=== PATIENT | female | born 1980 | race Caucasian/White ===

== ENCOUNTER 2016-12-11 09:19 | Inpatient (IN) ==
--- OUTSIDE RECORDS SUMMARY | 2016-12-11 17:11 | External Medical Summary | Continuity of Care Document ---
:1980 Author Organization [facility] Address [address] [place], [place] [id number] Phone Care Team Providers Name Role Phone Emigdio DO Lynne Unavailable Unavailable Allergies, Adverse Reactions, Alerts Substance Reaction Severity Status ampicillin Nausea/Vomiting Unknown Active Medications Medication Instructions Dosage Effective Dates Status Comments (start - stop) Prozac 40 mg capsule take 1 capsule by oral 40 MG - Active route every day in the morning Tylenol Sinus - Active Congestion Pain 5 mg-325 mg tablet ProAir HFA 90 inhale 2 puff by 180 MCG - Active mcg/actuation inhalation route aerosol inhaler every 4 - 6 hours as needed Problems Condition Effective Dates (start - stop) Clinical Status Supervision of elderly primigravida, - third trimester 36 weeks gestation of - Supervision of elderly primigravida, - first trimester Pap Smear Screening, Cervix - 9 weeks gestation of - Supervision of elderly primigravida, - first trimester Encounter for screening of - mother 13 weeks gestation of - Supervision of elderly primigravida, - second trimester Low lying placenta NOS or w/out - hemorrhage, second trimester 18 weeks gestation of - Supervision of elderly primigravida, - second trimester 22 weeks gestation of - Supervision of elderly primigravida, - second trimester Encounter for screening of - mother 18 weeks gestation of - Supervision of elderly primigravida, - second trimester 26 weeks gestation of - Supervision of elderly primigravida, - third trimester Low lying placenta NOS or w/out - hemorrhage, third trimester 30 weeks gestation of - Supervision of elderly primigravida, - third trimester 34 weeks gestation of - Supervision of elderly primigravida, - third trimester 38 weeks gestation of - Supervision of elderly primigravida, - third trimester 32 weeks gestation of - Supervision of elderly primigravida, - third trimester 37 weeks gestation of - Low lying placenta NOS or w/out - hemorrhage, third trimester 32 weeks gestation of - Asthma Active Depression Active Procedures Procedure Date OB Visit No Charge Cult, pathgnc orgnsm, screen Results Test Name Date and Time Measure Units Reference Range Abnormal Flag Comments Panel Description: CULTURE, GROUP B STREP WITH SUSCEPTIBILITY CULTURE, GROUP B STREP 14:25:00 SEE NOTE CULTURE, GROUP B STREP WITH SUSCEPTIBILITY WITH SUSCEPTIBILITY MICRO NUMBER: [id number] TEST STATUS: FINAL SPECIMEN SOURCE: VAGINAL/ANORECTAL SPECIMEN QUALITY: ADEQUATE RESULT: No group B Streptococcus isolatedTest performed at [facility] [employer] [id number] [place] [address]Klvrxfil: CASEY FERRIS DO,MPH Advance Directives Directive Yes / No Effective Date File Name Unknown Encounters Encounter Practice Location Reason(s) Diagnoses Date Provider Care Team Description For Visit Members Rowena [place] Supervision of Aug-0 [facility] In Womens elderly [address] Kamila ALBERT primigravida, 7 700 PO Box third [email or web address] Medical 1522, weeks gestation [facility] [place], [place], [id number], 120, [place], tel:-[phone] [place], [phone] [address], [place]. tel:[phone] Rowena [place] Supervision of Aug-0 [facility] In Womens elderly 1-201 [address] [facility] [place], primigravida, 7 700 PO Box third [email or web address] Medical 1522, weeks gestation [facility] of [place], [place], [address] [id number], 120, [place], tel:+[phone] [place], 114, [place]. tel: [phone] Rowena [place] Supervision of Casper-2 [facility] In Womens elderly 5-201 Chito. Health [place], primigravida, 7 700 PO Box third [email or web address] Medical 1522, weeks gestation Center [facility] [place], [place], [address] [id number], 120, [place], tel:+[phone] [place], 114, [place]. tel: [phone] Rowena [place] Supervision of Casper-1 [facility] In Womens elderly 1-201 Chito. Health [place], primigravida, 7 700 PO Box third [email or web address] Medical 1522, weeks gestation Center [facility] [place], [place], [address] , 120, [place], tel:+3162 [place], 114, [place]. tel: [phone] Rowena [place] Supervision of Efe-2 C[place]jo Referring In Womens elderly 6-201 Zainab. Provider: Health [place], primigravida, 7 700 Zainab PO Box third [email or web address] Medical Camejo T, 1522, weeks gestation Center [address] [place] [address], of Jakob Yoon, 120, [place] , Jakob [place] 120, [place] Evan IBARRA, tel:[phone] [place], , [place]. [id number]. tel: tel: [phone] Rowena [place] Low lying Efe-2 C[facility]jo In Womens Ultrasound placenta NOS or 6-201 Zainab. Health PA, w/out hemorrhage, 7 700 PO Box third [email or web address] Medical 1522, weeks gestation [facility], of Jakob Yoon, 120, [id number], [place], [place] IBARRA, tel:[phone] , [place]. tel: [phone] Rowena [place] Supervision of Efe-1 C[facility]jo In Womens elderly 2-201 Zianab. Health PA, primigravida, 7 700 PO Box third Medical 1522, trimesterLow [facility], lying placenta Jakob Yoon, NOS or w/out 120, [id number], hemorrhage, third [place], [place] [email or web address] weeks [place], tel: gestation of [phone] , [place]. tel: [phone] Rowena [place] Supervision of August-1 C[facility]jo In Womens elderly 5-201 Zainab. Health PA, primigravida, 7 700 PO Box second Medical 1522, [email or web address] weeks [facility], gestation of Jakob Yoon, 120, , [place], [place], tel:+ [phone] , [place]. tel: [phone] Rowena [place] Supervision of Apr-1 C[facility]jo In Womens elderly 7-201 Zainab. Health PA, primigravida, 7 700 PO Box second Medical 1522, [email or web address] weeks [facility], gestation of Jakob Yoon, 120, , [place], [place], tel: [phone] , [place]. tel: [phone] Rowena [place] Supervision of Mar-2 C[facility]jo In Womens elderly 0-201 Zainab. Health PA, primigravida, 7 700 PO Box second Medical 1522, trimesterLow [facility], lying placenta Jakob Yoon, NOS or w/out 120, , hemorrhage, [place], [place] second [place], tel:+ [id number] weeks [phone] 196790 gestation of , [place]. tel: [phone] Rowena [place] Supervision of Mar-2 C[facility]jo In Womens Ultrasound elderly 0-201 Zainab. Health PA, primigravida, 7 700 PO Box second Medical 1522, [facility] [place], r for Jakob Yoon, screening of 120, [id number], [email or web address] weeks [place], [place] gestation of [place], tel:+ [phone] [address] , [place]. tel: [phone] Rowena [place] Supervision of Feb-1 Camejo In Womens elderly 4-201 Zainab. Health PA, primigravida, 7 700 PO Box first Medical 1522, [facility] for Jakob Yoon, screening of 120, [id number], [email or web address] weeks [place], [place] gestation of ST[place], tel: [phone] [address] , [place]. tel: [phone] Associates [place] Supervision of Nell Referring In Womens elderly 7-201 Zaniab. Provider: Health PA, primigravida, 7 700 Zainab PO Box [facility] Medical Nell T, 1522, trimesterPap Center 700 [place], Smear Screening, , [facility], Cervix9 weeks 120, [place] [id number], gestation of [place], [facility] 120, [place] IBARRA, tel: [phone] [place], , [place]. [id number]. tel: tel: [phone] Family History Family Member Diagnosis Age At Onset No family history of Epilepsy Maternal Grandmother Ovarian Cancer Paternal Grandmother Cardiovascular Disease Paternal Grandmother Osteoporosis No family history of Colon Cancer No family history of Kidney Disease Maternal Grandmother Uterine Cancer Maternal Grandmother Diabetes Father Osteoporosis Maternal Grandfather Cardiovascular Disease Paternal Grandmother Hypertension No family history of Stroke No family history of Venous Thrombosis No family history of Lung Disease Mother Diabetes No family history of Breast Cancer Maternal Grandfather Hypertension No family history of Pulmonary Embolism Paternal Grandfather Cardiovascular Disease Immunizations Vaccine Date Status Comments Tdap completed Source: New Immunization Record Influenza, injectable, completed Source: New Immunization Record quadrivalent, preservative free, 3 yrs or older Payers Payer name Insurance type Covered constitution party ID Authorization(s) Aetna CI [id number] Aetna CI [id number] Aetna CI [id number] Social History Type Description Quantity Date Captured Alcohol Use Details No Caffeine Use Details Unknown Tobacco Use Status Unknown Smoking Status Never smoker Vital Signs Date / Height Weight BMI Pulse Blood Temperature Respiratory Body Head BMI Time: Rate Pressure Rate Surface Circumference percentile Area 278.00 43.5 lbs 4 mm[Hg] 2:23 kg/m PM eter (2) Chief Complaint And Reason For Visit Unknown Chief Complaint And Reason For Visit Reason For Referral Reason For Referral Unknown Plan Of Care Date Type Action Status Future Order: Radiology Order OB Detailed Complete Ultrasound Ordered ([id number]) Future Order: Radiology Order Ultrasound OB Follow-up ([id number]) Ordered Date Type Problem Goal Intervention Status Start Date Unknown. History Of Present Illness Encounter Date Complaint History Of Present Illness This patient has no known history of present illness Functional Status Encounter Date Functional Assessment Cognitive Assessment Unknown Medications Administered Medication Instructions Dosage Effective Dates (start - stop) Status Comments Drug Treatment Unknown Instructions Date Instruction Additional Information alcohol illicit / recreational drugs use of any medications (including supplements, vitamins, herbs, OTC drugs) smoking counseling domestic violence seat belt use HIV and other routine tests risk factors identified by history anticipated course of care nutrition and weight gain counseling, special diet toxoplasmosis precautions (cats / raw meat) sexual activity exercise indications for ultrasound influenza vaccine environmental / work hazards travel tobacco (ask, advise, assess, assist and arrange) childbirth classes / hospital facilities hospital registration genetic testing new ob handbook risks
--- OUTSIDE RECORDS SUMMARY | 2016-12-11 17:11 | External Medical Summary | Continuity of Care Document ---
:1980 Author Organization [facility] Allergies Active Description Code Type Severity Reaction Onset Reported/ Identified Relationship Clinical to Patient Status Yes ampicillin 2692 1 N/A Nausea/Vo miting Medications Problems Date Dx Coded Attending Type Code Diagnosis Diagnosed By 05/14/2016 Zainab Camejo Z12.4 Pap Smear S Screening, Cervix 07/15/2016 Zainab Camejo O09.512 Supervision of S elderly primigravida, second trimester 07/15/2016 Zainab Camejo Z36 Encounter for S screening of mother 07/15/2016 Zainab Camejo3A.18 18 weeks gestation S of 10/21/2016 Zainab Camejo O44.43 Low lying placenta S NOS or w/out hemorrhage, third trimester 10/21/2016 Zainab Camejo Z3A.32 32 weeks gestation S of 11/19/2016 Chito Rincon O09.513 Supervision of L elderly primigravida, third trimester 11/19/2016 Chito Rincon3A.36 36 weeks gestation L of Procedures Code Description Performed By Performed On 05/14/2016 60629 Specimen handling/transport OB 07/15/2016 59706 [place], DETAILED, SNGL FETUS 10/21/2016 11090 Ultrasnd preg uterus, flwup/repeat OB 11/19/2016 43787 Visit No Charge Results Encounters ACCT No. Visit Discharge Status Pt. Type Provider Facility Loc./Unit Complaint Date/Time [id number] 12/03/2016 12/03/2016 [facility], 15:30:00 23:59:59 Chito [place] [id number] 11/26/2016 11/26/2016 [facility], 14:00:00 23:59:59 Chito [place] [id number] 11/19/2016 11/19/2016 [facility], 14:20:00 23:59:59 Chito [place] [id number] 11/19/2016 11/19/2016 [facility], 14:00:00 23:59:59 Chito [place] [id number] 11/05/2016 11/05/2016 [facility], 13:15:00 23:59:59 Chito [place] [id number] 11/01/2016 11/01/2016 [facility], 14:22:00 23:59:59 Chito [place] [id number] 10/21/2016 10/21/2016 [facility] [place], 09:15:00 23:59:59 Zainab S [id number] 10/21/2016 10/21/2016 [facility], 08:45:00 23:59:59 Zainab S [id number] 10/07/2016 10/07/2016 [facility], 14:00:00 23:59:59 Zainab S [id number] 09/19/2016 09/19/2016 [facility] [place], 14:19:00 23:59:59 Zainab S [id number] 09/10/2016 09/10/2016 [facility] [place], 14:21:00 23:59:59 Zainab S [id number] 09/09/2016 09/09/2016 [facility] [place], 09:50:00 23:59:59 Zainab S [id number] 08/22/2016 08/22/2016 [facility] [place], 16:46:00 23:59:59 Zainab S [id number] 08/12/2016 08/12/2016 [facility], 16:15:00 23:59:59 Zainab S [id number] 08/02/2016 08/02/2016 [facility] [place], 09:18:00 23:59:59 Zainab S [id number] 07/30/2016 07/30/2016 [facility], 11:54:00 23:59:59 Zainab S [id number] 07/15/2016 07/15/2016 [facility], 10:40:00 23:59:59 Zainab S [id number] 07/15/2016 07/15/2016 [facility], 10:15:00 23:59:59 Zainab S [id number] 06/19/2016 06/19/2016 [facility], 11:49:00 23:59:59 Zainab S [id number] 06/11/2016 06/11/2016 [facility], 16:15:00 23:59:59 Zainab Armas [id number] 05/14/2016 05/14/2016 [facility], 14:15:00 23:59:59 Zainab Armas [id number] 12/10/2016 [facility], 15:30:00 Chito [place]
--- OUTSIDE RECORDS SUMMARY | 2016-12-11 17:11 | External Medical Summary | Continuity of Care Document ---
:1980 Author Organization [facility] Address [address] [place], [place] [id number] Phone Care Team Providers Name Role Phone Emigdio , Lynne Unavailable Unavailable Allergies, Adverse Reactions, Alerts Substance Reaction Severity Status ampicillin Nausea/Vomiting Unknown Active Medications Medication Instructions Dosage Effective Dates Status Comments (start - stop) Prozac 40 mg take 1 capsule by 40 MG - Active capsule oral route every day in the morning Tylenol Sinus - Active Congestion Pain 5 mg-325 mg tablet ProAir HFA 90 inhale 2 puff by 180 MCG - Active mcg/actuation inhalation route aerosol inhaler every 4 - 6 hours as needed cephalexin 500 mg take 1 capsule by 500 MG - No Longer capsule oral route every 8 Active hours Problems Condition Effective Dates (start - stop) [...] third trimester 32 weeks gestation of - Low lying placenta NOS or w/out - hemorrhage, third trimester 32 weeks gestation of - Asthma Active Depression Active Procedures Procedure Date OB Visit No Charge Results Test Name Date and Time Measure Units Reference Range Abnormal Flag Comments Unknown Advance Directives Directive Yes / No Effective Date File Name Unknown Encounters Encounter Practice Location Reason(s) Diagnoses Date Provider Care Team Description For Visit Members Rowena [place] Supervision of Oct- [facility] In Womens elderly 5-201 Chito. Kamila ALBERT primigravida, 7 700 PO Box third [email or web address] Medical 1522, weeks gestation [place], [place], [address] [id number], 120, [place], tel:+[phone] [place], 088235 [address], [place]. tel:[phone] Rowena [place] Supervision of Oct-1 [facility] In Womens elderly 1-201 Chito. Kamila ALBERT primigravida, 7 700 PO Box third [email or web address] Medical 1522, weeks gestation [place], [place], [address] [id number], 120, [place], tel:+[phone] [place], [phone] [address], [place]. tel:[phone] Rowena [place] Supervision of Sep-2 Camejo Referring In Womens elderly 6-201 Zainab. Provider: Kamila ALBERT primigravida, 7 700 Zainab PO Box third [email or web address] Medical Nell T, 1522, weeks gestation [address] of [facility] Dr [facility] Medical [place], 120, [place] , Jakob [place] 120, [place] IBARRA, tel:+ [phone] [place], , [place]. [id number]. tel: tel: [phone] Associates [place] Low lying Efe-2 C[place]jo In Womens Ultrasound placenta NOS or 6-201 Zainab. Health PA, w/out hemorrhage, 7 700 PO Box third [email or web address] Medical 1522, weeks gestation [facility], of Jakob Yoon, 120, , [place], [place], tel:[phone] , [place]. tel: [phone] Rowena [place] Supervision of Efe-1 Camejo In Womens elderly 2-201 Zainab. Health PA, primigravida, 7 700 PO Box third Medical 1522, trimesterLow [facility] [place], lying placenta Jakob Yoon, NOS or w/out 120, , hemorrhage, third [facility] [email or web address] weeks [place], tel: gestation of , [place]. tel: [phone] Rowena [place] Supervision of May-1 Camejo In Womens elderly 5-201 Zainab. Health PA, primigravida, 7 700 PO Box second Medical 1522, [email or web address] weeks [facility], gestation of Jakob Yoon, 120, , [place], [place], tel:901 , [place]. tel: [phone] Rowena [place] Supervision of Apr-1 Camejo In Womens elderly 7-201 Zainab. Health PA, primigravida, 7 700 PO Box second Medical 1522, [email or web address] weeks [facility], gestation of Jakob Yoon, 120, , [place], [place], tel:[phone] , [place]. tel: [phone] Rowena [place] Supervision of Mar-2 Camejo In Womens elderly 0-201 Zainab. Health PA, primigravida, 7 700 PO Box second Medical 1522, trimesterLow [facility] [place], lying placenta Jakob Yoon, NOS or w/out 120, [id number], hemorrhage, [place], second [place], tel: [email or web address] weeks [phone] 196790 gestation of , [place]. tel: [phone] Rowena [place] Supervision of Jun- Camejo In Womens Ultrasound elderly 0-201 Zainab. Health PA, primigravida, 7 700 PO Box second Medical 1522, [facility] for Jakob Yoon, screening of 120, [id number], [email or web address] weeks [place], gestation of [place], tel: [phone] 196790 , [place]. tel: [phone] Rowena [place] Supervision of May- Camejo In Womens elderly 4-201 Zainab. Health PA, primigravida, 7 700 PO Box first Medical 1522, [facility] Jakob Yoon, screening of 120, [id number], weeks [place], gestation of [place], tel: [phone] [address] , [place]. tel: [phone] Rowena [place] Supervision of Camejo Referring In Womens elderly 7-201 Zainab. Provider: Health PA, primigravida, 7 700 Zainab PO Box first Medical Camejo T, 1522, trimesterPap Center [address] [place] [address], Smear Screening, Jakob Yoon, Cervix9 weeks 120, [place] , gestation of Evan [facility] 120, [place] Evan IBARRA, tel: [phone] [place], , [place]. [id number]. tel: tel: [phone] Family History Family Member Diagnosis Age At [...] older Payers Payer name Insurance type Covered green party ID Authorization(s) Aetna CI [id number] Aetna CI [id number] Aetna CI [id number] Social History Type Description Quantity Date Captured Alcohol Use Details No Caffeine Use Details combo 24 oz per day Tobacco Use Status Never smoked tobacco Smoking Status Never smoker Vital Signs Date / Height Weight BMI Pulse Blood Temperature Respiratory Body Head BMI Time: Rate Pressure Rate Surface Circumference percentile Area 273.40 42.8 130/79 -2017 lbs 2 mm[Hg] 1:15 kg/m PM eter (2) Chief Complaint And Reason For Visit Unknown Chief Complaint And Reason For Visit Reason For Referral Reason For Referral Unknown Plan Of Care Date Type Action Status Future Order: Radiology Order OB Detailed Complete Ultrasound Ordered ([id number]) Future Order: Radiology Order Ultrasound OB Follow-up ([id number]) Ordered Date Type Problem Goal Intervention Status [...]
--- OUTSIDE RECORDS SUMMARY | 2016-12-11 17:11 | External Medical Summary | Continuity of Care Document ---
:1980 Author Organization [facility] Address [address] [place], [place] [id number] Phone Care Team Providers Name Role Phone [...] Clinical Status Supervision of elderly primigravida, - first trimester [...] second trimester 26 weeks gestation of - Low lying placenta NOS or w/out - hemorrhage, third trimester Supervision of elderly primigravida, - third trimester 30 weeks gestation of - Low lying placenta NOS or w/out - hemorrhage, third trimester 32 weeks gestation of - Supervision of elderly primigravida, - third trimester 32 weeks gestation of - Supervision of elderly primigravida, - third trimester 34 weeks gestation of - Supervision of elderly primigravida, - third trimester 36 weeks gestation of - Asthma Active Depression Active Procedures Procedure Date Unknown Results Test Name Date and Time Measure Units Reference Range Abnormal Flag Comments Unknown Advance Directives Directive Yes / No Effective Date File Name Unknown Encounters Encounter Practice Location Reason(s) Diagnoses Date Provider Care Team Description For Visit Members Rowena [place] Supervision of Casper-2 Sobbing In Womens elderly 5-201 Chito. Kamila ALBERT primigravisheng, 7 700 PO Box third [email or web address] Medical 1522, weeks gestation [place], [place], [address] [id number], 120, [place], tel:[phone] [place], 284113 [address], [place]. tel:[phone] Rowena [place] Supervision of Casper-1 Sobbing In Womens elderly 1-201 Chito. Kamila ALBERT, primigravisheng, 7 700 PO Box third [email or web address] Medical 1522, weeks gestation [place], [place], [id number], 120, [place] Evan, tel:[phone] [place], 615668 [address], [place]. tel:[phone] Rowena [place] Casper-0 Sobbing In Womens 7-201 Chito. Kamila ALBERT, 7 700 PO Box Medical 1522, [place], [place], [address] [id number], 120, [place] Evan, tel:[phone] [place], 168343 [address], [place]. tel:[phone] Rowena [place] Supervision of Efe-2 Camejo Referring In Womens elderly 6-201 Zainab. Provider: Kamila ALBERT primigravida, 7 700 Zainab PO Box third [email or web address] Medical Nell T, 1522, weeks gestation [address] [facility] Jakob Yoon, 120, Center [id number], Jakob [place] 120, [place], [place], tel:[phone] [place], , [place]. [id number]. tel: tel: [phone] Associates [place] Low lying Efe-2 Camejo In Womens Ultrasound placenta NOS or 6-201 Zainab. Health PA, w/out hemorrhage, 7 700 PO Box third Medical 1522, weeks gestation [facility], of Jakob Yoon, 120, , [place], [place], tel: [phone] , [place]. tel: [phone] Associates [place] Low lying Efe-1 Camejo In Womens placenta NOS or 2-201 Zainab. Health PA, w/out hemorrhage, 7 700 PO Box third Medical 1522, trimesterSupervis [facility], ion of elderly Jakob Yoon, primigravida, 120, [id number], third [email or web address] [place], weeks gestation [place], tel: of [phone] [address] , [place]. tel: [phone] Associates [place] Supervision of May-1 Camejo In Womens elderly 5-201 Zainab. Health PA, primigravida, 7 700 PO Box second Medical 1522, [email or web address] weeks [facility], gestation of Jakob Yoon, 120, , [place], [place], tel: [phone] , [place]. tel: [phone] Rowena [place] Supervision of Apr-1 Camejo In Womens elderly 7-201 Zainab. Health PA, primigravida, 7 700 PO Box second Medical 1522, [email or web address] weeks [facility], gestation of Jakob Yoon, 120, , [place], [place], tel: [phone] , [place]. tel: [phone] Rowena [place] Supervision of Mar-2 Camejo In Womens elderly 0-201 Zainab. Health PA, primigravida, 7 700 PO Box second Medical 1522, trimesterLow [facility], lying placenta Jakob Yoon, NOS or w/out 120, [id number], hemorrhage, [place], second [place], tel: [id number] weeks [phone] 196790 gestation of , [place]. tel: [phone] Rowena [place] Supervision of Jun- Camejo In Womens Ultrasound elderly 0-201 Zainab. Health PA, primigravida, 7 700 PO Box second Medical 1522, [facility] for Jakob Yoon, screening of 120, [id number], [email or web address] weeks [place], gestation of [place], tel: [phone] 1967[address] , [place]. tel: [phone] Rowena [place] Supervision of Camejo In Womens elderly 4-201 Zainab. Health PA, primigravida, 7 700 PO Box first Medical 1522, [facility], for Jakob Yoon, screening of 120, [id number], [email or web address] weeks [place], gestation of [place], tel: , [place]. tel: [phone] Rowena [place] Supervision of Camejo Referring In Womens elderly 7-201 Zainab. Provider: Health PA, primigravida, 7 700 Zainab PO Box first Medical Camejo T, 1522, trimesterPap Center [address] [place] [address], Smear Screening, Jakob Yoon, Cervix9 weeks 120, Center , gestation of Evan [facility] 120, [place] STACEYEvan, tel: [place], , [place]. [id number]. tel: tel: [phone] Family History Family Member Diagnosis Age At [...] older Payers Payer name Insurance type Covered libertarian ID Authorization(s) Aetna CI [id number] Aetna CI [id number] Aetna CI [id number] Social History Type Description Quantity Date Captured Unknown Vital Signs Date / Height Weight BMI Pulse Blood Temperature Respiratory Body Head BMI Time: Rate Pressure Rate Surface Circumference percentile Area Unknown Chief Complaint And Reason For Visit Unknown Chief Complaint And Reason For Visit Reason For Referral Reason For Referral Unknown Plan Of Care Date Type Action Status Appointment Meseret Armstrong BOOKED Future Order: Radiology Order OB Detailed Complete Ultrasound Ordered ([id number]) Future Order: Radiology Order Ultrasound OB Follow-up ([id number]) Ordered Date Type Problem Goal Intervention Status [...]
[2016-12-11] MEDS ORDERED: CARBOPROST 250 MCG/ML INJECTION IM PRN (17:17)
[2016-12-11] MEDS ORDERED: METHYLERGONOVINE 0.2 MG/ML INJECTION IM PRN (17:17)
[2016-12-11] MEDS ORDERED: LIDOCAINE 1% (10mg/ml) 2mL INJ PF SDV ID PRN (17:17)
[2016-12-11] MEDS ORDERED: MAG-AL + SIM ORAL LIQUID 30ml PO PRN (17:17)
[2016-12-11] MEDS ORDERED: CALCIUM CARBONATE Chewable 500mg TABLET PO PRN (17:17)
[2016-12-11] MEDS ORDERED: ACETAMINOPHEN 500 MG TABLET PO PRN (17:17)
[2016-12-11] MEDS: LR 1,000 ML IV PRN ×3 (17:24→23:36)
[2016-12-11 18:21] VITALS: BMI 44.2
[2016-12-11] MEDS ORDERED: DiphenhydrAMINE 50 MG/ML INJECTION IVP PRN (21:39)
[2016-12-11] MEDS ORDERED: NALOXONE 0.4 MG/ML INJECTION IVP PRN (21:39)
[2016-12-11] MEDS ORDERED: ONDANSETRON 4 MG/2 ML INJECTION IVP PRN (21:39)
[2016-12-11] MEDS ORDERED: ROPIVACAINE 1% 10MG/ML INJ 200 MG, SUFentanil 50 MCG in NS 100 ML EPI PRN (21:39)
--- NOTE | 2016-12-11 21:39 | Anesthesia Preoperative Report ---
Anesthesia Epidural/Spinal Rec - Date and Time Date: 12/11/16 Preoperative Diagnosis: term spontaneous labor Procedure: Labor Epidural Plan: Epidural - Vital Signs Vital Signs: Temperature 98.9 F 12/11/16 16:50 Pulse Rate 109 H 12/11/16 16:50 Respiratory Rate 20 12/11/16 16:50 Blood Pressure 129/78 12/11/16 16:50 Oxygen Delivery Method Room Air /Para: P:0 - Medictaions & Allergies Inpatient Medications: Current Medications Acetaminophen (Tylenol) 500 - 1,000 mg PO Q4H PRN PRN Reason: Pain Al Hydroxide/Mg Hydroxide (Maalox Plus) 30 ml PO Q3H PRN PRN Reason: Indigestion Calcium Carbonate (Tums) 500 - 1,000 mg PO Q2H PRN PRN Reason: Indigestion Carboprost Tromethamine (Hemabate) 250 mcg IM O PRN PRN Reason: .Downtime Lactated Ringer's (Lactated Ringers) 1,000 mls @ 1,000 mls/hr IV .Q1H PRN PRN Reason: as directed Last Admin: 12/11/16 17:24 Dose: 1,000 mls/hr Lidocaine HCl (Xylocaine-Mpf 1% Vial) 0.2 mg ID O PRN PRN Reason: IV Start Methylergonovine Maleate (Methergine) 0.2 mg IM O PRN Misoprostol (Cytotec) 800 mcg MI ONCE PRN Allergies/Adverse Reactions: Allergies Allergy/AdvReac Type Severity Reaction Status Date / Time Penicillins Allergy Verified 11/21/16 11:27 - Home Medications Home Medications: Home Medications Medication Instructions Recorded Confirmed Type Albuterol Inhaler [Ventolin Hfa] 2 puff ORAL INH PRN PRN 11/21/16 11/21/16 History FLUoxetine [Prozac] 40 mg DAILY 11/21/16 11/21/16 History Phenylephrine HCl [Suphedrine PE] 10 mg PO PRN PRN 11/21/16 11/21/16 History Pnv No.95/Ferrous Fum/Folic AC 1 each PO DAILY 11/21/16 11/21/16 History [ Tablet] - Medical History Respiratory: Reports: Asthma DENIES: Bronchitis, Chronic Obstructive Pulmonary Disease (COPD), Dyspnea, Orthopnea, Pulmonary Embolism, Pneumonia, Upper Respiratory Infection, Pulmonary Edema, Sleep Apnea, Tuberculosis, Other Cardiovascular: DENIES: Abnormal EKG, Angina, Arrhythmia, Congestive Heart Failure, Coronary Artery Disease, Heart Murmur, Hypertension, Hypotension, High Cholesterol, Myocardial Infarction, Rheumatic Fever, Valvular Heart Disease, Other Gastrointestional: Reports: Morbid Obesity DENIES: Obstructive Bowel, Hepatitis, Cirrhosis, Nausea or Vomiting Present, Gastroesophageal Reflux Disease, Gastrointestinal Bleeding, Hiatal Hernia, Ulcer , Other Neuro/Musculoskeletal: Denies: HX.MS.OSAR, Back Problems, Cerebrovascular Accident, Depression, Headaches, Loss of Consciousness, Muscle Weakness, Neuromuscular Disorder, Paralysis, Paresthesia, Syncope, Seizures, Other Renal/Endocrine: DENIES: Diabetes Mellitus Type 1, Diabetes Mellitus Type 2, Renal Failure, Dialysis, Thyroid Disease, Weight Loss, Weight Gain, Other Other History: Reports: Now DENIES: Anesthesia Reactions, Blood Transfusions, Chemotherapy, Cancer, Hemophilia, Malignant Hyperthermia, Sickle Cell Disease, Other Anesthesia Reactions: nausea and vomiting - Surgical History Anesthesia Reactions: None Hx Family Anesthesia Reaction: No History of Motion Sickness: No - Social History Smoking Status: Heavy tobacco smoker Second Hand Exposure: No Substance Use Type: does not use Alcohol Intake: never Alcohol Intake Frequency: does not drink Hx Chewing Tobacco Use: No - Pertinent Findings Lab Data: CBC and BMP 12/11/16 17:25 - Physical Exam Respiratory Exam: lungs clear, bilateral breath sounds equal Cardiovascular Exam: regular rate and rhythm, no murmur - Airway Assessment Mallampati Score: I TMD: 3 Fingerbreadths Neck Extension: good Overall Assessment: may be difficult mask vent, may be difficult intubation - ASA ASA Score: 3 - Discussion Discussion: Discussed risks/options/alternatives of anesthesia and questions answered. Patient consents. Nursing pain assessment noted. Anesthesia Discussion: parent Attestation Statement: Prior to the delivery of any anesthetic medication, I examined the patient, developed the plan, obtained the patient's consent and discussed the risk and benefits of the procedure with the patient/guardian.
[2016-12-11] MEDS ORDERED: OXYTOCIN DRIP 30 UNIT/500 ML ML IV PRN (21:55)
[2016-12-11] MEDS ORDERED: D5LR 1,000 ML IV PRN (21:55)
[2016-12-12] MEDS ORDERED: CITRIC ACID/SODIUM CITRATE 30ml PO ONE (00:35)
[2016-12-12] MEDS ORDERED: FAMOTIDINE PB 20 MG/50 ML BAG IV ONE (00:35)
[2016-12-12] MEDS ORDERED: CEFAZOLIN 1 G INJECTION IVP ONE (00:35)
[2016-12-12] MEDS ORDERED: CEFAZOLIN PREMIX (MC ONLY) 2 GM/50 ML BAG IV ONE (00:35)
[2016-12-12] MEDS: LR 1,000 ML IV PRN (01:09)
[2016-12-12] MEDS: AZITHROMYCIN IV 500 MG in NS 250ml 250 ML IV SCH (01:30)
[2016-12-12] MEDS ORDERED: ONDANSETRON 4 MG/2 ML INJECTION ONE (01:30)
[2016-12-12] MEDS ORDERED: MORPHINE SULFATE PF 5mg/10ml INJ (Duramorph) ONE (02:01)
[2016-12-12] MEDS ORDERED: LIDOCAINE 2%/EPI 1:200,000 20ml SDV PF ONE (02:06)
[2016-12-12] MEDS ORDERED: SODIUM BICARBONATE 8.4% (50mEq/50ml) VIAL IV ONE (02:06)
--- NOTE | 2016-12-12 02:56 | Operative Note ---
Operative Note - Date of Operation Date of Operation: 12/12/16 - General : 1 Para: 1 Expected Date of Delivery: 12/11/16 Estimated or Known Gestational Age (weeks): 40 Estimated or Known Gestational Age (days): 1 - Preoperative Diagnosis Arrested dilation Preoperative Diagnosis: RH neg - Postoperative Diagnosis Postoperative Diagnosis: Same Uterine Fibroid - Procedure Primary - Surgeon Surgeon: Surgeon: Chito Rincon DO - [employer] Venus Lehman MD - Anesthesia Anesthesia Provider: Spencer Morgan CRNA Anesthesia Type: Combined Spinal/Epidural - Complications Complications: None - Estimated Blood Loss Estimated Blood Loss:: 600 - Findings Findings: viable male - APGARS : 2/8 - [place] Weight 4.222 kg - Name [place] Name: Otoniel - Indications Indications: Failure to progress - Description of Procedure Description of Procedure: See dictation
[2016-12-12] MEDS: D5LR 1,000 ML IV SCH ×2 (03:35→20:41)
[2016-12-12] MEDS ORDERED: ONDANSETRON 4 MG/2 ML INJECTION IVP PRN (03:55)
[2016-12-12] MEDS ORDERED: ACETAMINOPHEN 500 MG TABLET PO PRN (03:55)
[2016-12-12] MEDS ORDERED: DiphenhydrAMINE 25 MG CAPSULE PO PRN (03:55)
[2016-12-12] MEDS ORDERED: CALCIUM CARBONATE Chewable 500mg TABLET PO PRN (03:55)
[2016-12-12] MEDS ORDERED: HYDROCORTISONE 2.5% CREAM 30gm RECTALLY PRN (03:55)
[2016-12-12] MEDS ORDERED: OXYTOCIN DRIP 30 UNIT/500 ML ML IV SCH (03:55)
[2016-12-12] MEDS ORDERED: NALOXONE 2 MG/2 ML INJECTION PFS IVP PRN (03:55)
[2016-12-12] MEDS ORDERED: SALINE FLUSH 10ml SYRINGE IVF PRN (03:55)
[2016-12-12] MEDS: IBUPROFEN 800 MG TABLET PO SCH ×3 (03:58→22:24)
--- NOTE | 2016-12-12 06:50 | Progress Note ---
This is a patient of Dr. Rincon. She was admitted 12/11/2016 and it is now . Ms. Armstrong has not progressed any farther than 4 cm since rupture of her membranes at 3:45 this afternoon. She has had an intrauterine pressure monitor in for over an hour which showed adequate contractions. We did augment with Pitocin. Heart tones earlier were of concern but have become much more reassuring. At this point I have recommended because of the failure to progress. I believe the baby really has cephalopelvic disproportion. We have reviewed the potential risks of surgery versus the options and she agrees that this is in her best interest, so the crew has been called. Dr. Rincon will be coming in. KRIS
--- NOTE | 2016-12-12 08:06 | Operative Note ---
DATE OF PROCEDURE 12/12/2016 PREOPERATIVE DIAGNOSES 1. Labor. 2. Spontaneous rupture of membranes. 3. Failure to progress. 4. Rh negative. POSTOPERATIVE DIAGNOSES 1. Labor. 2. Spontaneous rupture of membranes. 3. Failure to progress. 4. Uterine fibroid. 5. Delivered. 6. Rh negative. PROCEDURE Primary low transverse section via Khoa-Barker incision. SURGEON Dr. Chito Rincon ULTIMATE HOOPS SCOREBOARD OPERATOR Dr. Venus Lehman ANESTHESIOLOGIST Spencer Morgan, DIRECTOR OF BILLING ANESTHESIA Epidural anesthesia ESTIMATED BLOOD LOSS 600 ml SPECIMEN SENT Fibroid. COMPLICATIONS None. FINDINGS Viable male , name "Otoniel," in LOT position and uterine fibroid noted in the incision. Normal uterus, tubes and ovaries. INDICATION FOR PROCEDURE This is a 36-year-old who presented to Labor & Delivery at approximately 3: 30 this afternoon with routine consistent contractions that were painful and report of spontaneous rupture of membranes. She was 4 cm at that time which was change from 2 cm in the office the previous day. She was admitted for labor. After a sufficient amount of time without change in her cervix, an IUPC was placed and Pitocin was started. A significant amount of time was passed without further progression into labor and decision was made to proceed with a primary low transverse section. Risks, benefits and alternatives to the procedure were discussed with the patient including injury to bowel, bladder , , bleeding with the need for a transfusion, infection. Questions were elicited and answered. DESCRIPTION OF PROCEDURE The patient was taken to the operating room where combined spinal-epidural anesthesia was obtained without difficulty and she was prepped and draped in the dorsal supine position with a leftward tilt. She was given a gram of TXA prior to the procedure along with 500 mg of azithromycin and the standard antibiotic prophylaxis prior to delivery. Time-out was performed. At this time Sheyla check was performed and noted to be adequate and a skin incision was made with the scalpel. The incision was then extended with the scalpel down through the underlying layers to the fascia with the scalpel. The fascia was incised in the midline and the scalpel incision was extended laterally with the Resendiz scissors. At this time the rectus muscles were bluntly and the peritoneum was entered sharply with the Metzenbaum scissors. The peritoneal incision was extended superiorly and inferiorly with good visualization of the bladder. A bladder blade was inserted and the uterine incision was made with the scalpel in a transverse fashion. The uterine incision was extended bluntly. An amniotomy was performed and the 's head was delivered LOT atraumatically, followed by the body. The cord was serially clamped and cut and the was given to the receiving nurse who was waiting. At this time the uterus was exteriorized with minimal bleeding noted at this time. The uterine fibroid that was deep and nonpalpable prior to incision was noted to be in the middle of the incision and was easily shelled out and sent to pathology. At this time the uterine incision was repaired with 0 Monocryl in a running locked fashion followed by a second layer of the same suture in an imbricating fashion. A [id number] stitch was used to obtain excellent hemostasis using the 0 Monocryl. At this time the uterus was returned to the abdomen and the gutters were cleared of all clot and debris and hemostasis was reassured. The peritoneum was then reapproximated with 3-0 Monocryl in a running fashion and the fascia was reapproximated with 0 Vicryl in a running fashion. Subcutaneous layer was closed with 2-0 plain gut and the skin was closed with estrella. The patient tolerated the procedure well. Sponge , lap and needle counts were correct x 2 and the patient was taken to recovery room in stable condition. Please note Apgars were 2//8, weight was 9 lbs. 4 oz. or 4,222 g. MTDD
--- NOTE | 2016-12-12 08:19 | OB/GYN Progress Note ---
OB-PP Progress Note - General POD:: POD1 - Subjective Date: 12/12/16 Lochia: Moderate Pain: contolled Voiding: ronquillo still in place Nausea or Vomiting Present: No - Objective Vital Signs: Last Vital Signs Temp 98.9 F 12/11/16 16:50 Pulse 109 H 12/11/16 16:50 Resp 20 12/11/16 16:50 BP 129/78 12/11/16 16:50 Urine Output: good General: alert and oriented Abdomen: fundus firm Incision: dressed Extremities: non-tender (SCD's in place) Edema: none Laboratory: Laboratory Results - last 24 hr 12/11/16 12/11/16 12/12/16 17:25 17:27 02:21 WBC 12.6 H RBC 3.99 L Hgb 10.5 L Hct 32.3 L MCV 81.0 MCH 26.3 MCHC 32.5 RDW Std Deviation 39.8 Plt Count 235 MPV 10.5 Cord ABG pH 7.294 Cord ABG pCO2 38.3 Cord ABG pO2 19 Cord ABG HCO3 19 Cord ABG Total CO2 20 Cord ABG Base Excess -7.0 Cord ABG O2 Sat 24.0 Cord VBG pH Cord VBG pCO2 Cord VBG pO2 Cord VBG HCO3 Cord VBG Total CO2 Cord VBG Base Excess Cord VBG O2 Sat Blood Type B Positive Antibody Screen Negative 12/12/16 12/12/16 02:21 07:26 WBC 14.3 H RBC 3.43 L Hgb 8.9 L D Hct 28.0 L D MCV 81.6 MCH 25.9 L MCHC 31.8 RDW Std Deviation 39.4 Plt Count 185 MPV 10.5 Cord ABG pH Cord ABG pCO2 Cord ABG pO2 Cord ABG HCO3 Cord ABG Total CO2 Cord ABG Base Excess Cord ABG O2 Sat Cord VBG pH Cancelled Cord VBG pCO2 Cancelled Cord VBG pO2 Cancelled Cord VBG HCO3 Cancelled Cord VBG Total CO2 Cancelled Cord VBG Base Excess Cancelled Cord VBG O2 Sat Cancelled Blood Type Antibody Screen - Assessment Assessment: Primary C/S - Plan Plan: routine care
[2016-12-12] MEDS: HYDROCODONE/APAP 5mg/325mg TABLET PO PRN (08:28)
[2016-12-12] MEDS: DOCUSATE CALCIUM 240 MG CAPSULE PO SCH (08:28)
--- NOTE | 2016-12-12 12:03 | Anesthesia Postoperative Note ---
- Date and Time Date: 12/12/16 Time: 12:03 - Status Patient Participated in Evaluation: Patient Participated in Person Vital Signs: Temperature 98.3 F 12/12/16 06:30 Pulse Rate 109 H 12/12/16 06:30 Respiratory Rate 16 12/12/16 06:30 Blood Pressure 115/62 12/12/16 06:30 Pulse Oximetry 98 12/12/16 06:30 Oxygen Delivery Method Room Air Respiratory Function: Airway Patent Cardiovascular Function: Regular Pulse EKG Rhythm: Normal Sinus Rhythm Mental Status: Alert and Oriented Hydration: Taking PO Fluids Complications During Recover: None Apparent - Follow-Up Instructions Instructions: Per Surgeon
[2016-12-12] MEDS: SIMETHICONE 80 MG CHEWABLE TABLET PO SCH ×4 (14:15→22:25)
[2016-12-12] MEDS: SIMETHICONE 80 MG CHEWABLE TABLET PO PRN ×2 (20:43→22:24)
[2016-12-13] MEDS: HYDROCODONE/APAP 5mg/325mg TABLET PO PRN ×3 (04:19→22:58)
[2016-12-13] MEDS: SIMETHICONE 80 MG CHEWABLE TABLET PO SCH ×4 (08:56→23:04)
[2016-12-13] MEDS: DOCUSATE CALCIUM 240 MG CAPSULE PO SCH (08:56)
[2016-12-13] MEDS: IBUPROFEN 800 MG TABLET PO SCH ×4 (08:58→23:09)
--- NOTE | 2016-12-13 09:08 | OB/GYN Progress Note ---
OB-PP Progress Note - General PPD1 POD:: Post Op Check, POD1 Maternal Group B Strep: Negative Maternal blood type: B+ Maternal Rubella Status: Immune - Subjective Date: 12/13/16 Lochia: Minimal Pain: contolled Voiding: voiding Nausea or Vomiting Present: No - Objective Vital Signs: Last Vital Signs Temp 97.7 F 12/13/16 04:36 Pulse 95 12/13/16 04:36 Resp 16 12/13/16 04:36 BP 101/62 12/13/16 04:36 Pulse Ox 98 12/13/16 04:36 Urine Output: adequate General: alert and oriented Respiratory: non-labored Abdomen: fundus firm Incision: normal, dry, intact Edema: none - Assessment Assessment: SP, Primary C/S - Plan Plan: routine care
[2016-12-14] MEDS: HYDROCODONE/APAP 5mg/325mg TABLET PO PRN ×4 (06:44→21:25)
[2016-12-14] MEDS: IBUPROFEN 800 MG TABLET PO SCH ×3 (06:45→21:25)
[2016-12-14] MEDS: DOCUSATE CALCIUM 240 MG CAPSULE PO SCH (08:41)
[2016-12-14] MEDS: SIMETHICONE 80 MG CHEWABLE TABLET PO SCH ×3 (08:41→21:26)
--- NOTE | 2016-12-14 13:32 | OB/GYN Progress Note ---
OB-PP Progress Note - General PPD1, PPD2 POD:: POD2 Maternal Group B Strep: Negative Maternal blood type: B+ Maternal Rubella Status: Immune - Subjective Date: 12/14/16 Lochia: Minimal Pain: contolled Voiding: voiding Nausea or Vomiting Present: No - Objective Vital Signs: Last Vital Signs Temp 97.9 F 12/14/16 12:00 Pulse 88 12/14/16 12:00 Resp 16 12/14/16 12:00 BP 114/63 12/14/16 12:00 Pulse Ox 95 12/14/16 12:00 Urine Output: good General: alert and oriented Respiratory: non-labored Abdomen: fundus firm, non-tender Incision: normal, intact Side: left, right Site: ankle Edema Degree: 1+ - Assessment Assessment: SP, Primary C/S - Plan Plan: routine care Expected date of discharge: 12/15/16 doing well, Plan dismissal POD #3 with .
[2016-12-14] MEDS: SIMETHICONE 80 MG CHEWABLE TABLET PO PRN (21:25)
[2016-12-15 03:41] VITALS: O2SAT 100
[2016-12-15] MEDS: HYDROCODONE/APAP 5mg/325mg TABLET PO PRN ×2 (04:25→10:34)
[2016-12-15] MEDS: IBUPROFEN 800 MG TABLET PO SCH ×2 (05:32→07:18)
[2016-12-15] MEDS: SIMETHICONE 80 MG CHEWABLE TABLET PO SCH ×2 (05:33→10:35)
[2016-12-15 07:25] VITALS: BP 118/69; PULSE 94; RESP 16; TEMP 98.6
--- NOTE | 2016-12-15 08:05 | OB/GYN Progress Note ---
OB-PP Progress Note - General PPD1, PPD2, PPD3 POD:: POD3 Maternal Group B Strep: Negative Maternal blood type: B+ Maternal Rubella Status: Immune - Subjective Date: 12/15/16 Lochia: Minimal Pain: contolled Voiding: voiding Nausea or Vomiting Present: No - Objective Vital Signs: Last Vital Signs Temp 98.6 F 12/15/16 07:24 Pulse 94 12/15/16 07:24 Resp 16 12/15/16 07:24 BP 118/69 12/15/16 07:24 Pulse Ox 100 12/15/16 01:29 Urine Output: good General: alert and oriented Respiratory: non-labored Abdomen: fundus firm, non-tender Incision: normal, dry Incision: [place] removed Benzoin and steri strips applied Extremities: non-tender Edema: none - Assessment Assessment: SP, Primary C/S - Plan Plan: routine care, discharge home Expected date of discharge: 12/15/16 Follow up in office 2 weeks inc check and 6 weeks PPV
--- NOTE | 2016-12-15 08:09 | Discharge Instructions ---
Discharge Plan - Med Rec/Dispo Referrals/Follow Up: Chito Rincon DO [Physician] - Binh Instructions: MC Vaginal Delivery Prescriptions: New Hydrocodone/APAP 5/325 [[place] 5/325] 1 - 2 tab PO Q4H PRN #30 tablet PRN Reason: Pain Ibuprofen [Motrin] 800 mg PO Q8H #30 tablet Continue Albuterol Inhaler [Ventolin Hfa 90 mcg/actuation] 2 puff ORAL INH PRN PRN PRN Reason: Allergic Reaction Phenylephrine HCl [Suphedrine PE] 10 mg PO PRN PRN PRN Reason: Allergy Symptoms Pnv No.95/Ferrous Fum/Folic AC [ Tablet] 1 each PO DAILY FLUoxetine [Prozac] 40 mg DAILY - Disposition Discharged Home, Self-Care
[2016-12-15] MEDS: DOCUSATE CALCIUM 240 MG CAPSULE PO SCH (10:35)
== END 2016-12-15 11:25 | disposition home or self-care (01) | DRG 766 ==
LOC: EDACCT# → MC 17:04
PROVIDERS: ADMIT Obstetrics & Gynecology; ATTEND Obstetrics & Gynecology

== ENCOUNTER 2016-12-18 14:20 | Observation (INO) ==
--- OUTSIDE RECORDS SUMMARY | 2016-12-18 14:54 | External Medical Summary | Continuity of Care Document ---
:1980 Author Organization [facility] Address [address] [place], [place] [id number] Phone Care Team Providers Name Role Phone Emigdio DO, Lynne Unavailable Unavailable Allergies, Adverse Reactions, Alerts [...] third trimester 37 weeks gestation of - Pap Smear Screening, Cervix - Low lying placenta NOS or w/out - hemorrhage, second trimester Low lying placenta NOS or w/out - hemorrhage, third trimester Low lying placenta NOS or w/out - hemorrhage, third trimester Asthma Active Depression Active Active Procedures Procedure Date OB Visit No Charge Results Test Name Date and Time Measure Units Reference Range Abnormal Flag Comments Unknown Advance Directives Directive Yes / No Effective Date File Name Unknown Encounters Encounter Practice Location Reason(s) Diagnoses Date Provider Care Team Description For Visit Members [facility] Supervision Sobbing In Womens of elderly 1-201 [facility]. [facility] [place], primigravida, 7 [address], third Medical [place], [place], [address] [id number], [address], gestation of Suite tel:[phone], [address] [place], [address], [place]. tel: [phone] [facility] Efe-2 [facility] Referring In Womens 6-201 Zainab. Provider: Kamila ALBERT, 7 700 Zainab [address], Medical [place] T, [place], [place], Center [address] [id number], , [facility] [place] [address] tel:[phone] Evan, Jak[address], [address] [place], [place], [id number] [place], , [place]. [id number]. tel: tel: [phone] [facility] Low lying Efe-2 C[place]jo In Womens Ultrasound placenta NOS 6-201 Zainab. Health [place], or w/out 7 700 [address], hemorrhage, [place], [place], third Center , trimester , [facility] [address], tel:[phone] [place], [address] [place], [id number] , [place]. tel: [phone] [facility] Low lying Efe-1 Camejo In Womens placenta NOS 2-201 Zainab. Health [place], or w/out 7 700 [address], hemorrhage, [place], [place], third Center , trimester , [facility] [address], tel:[phone] [place], [address] [place], [id number] , [place]. tel: [phone] [facility] Low lying Mar-2 Camejo In Womens placenta NOS 0-201 Zainab. Health [place], or w/out 7 700 [address], hemorrhage, [place], [place], second Center , trimester , [facility] [address], tel:[phone] [place], [address] [place], [id number] , [place]. tel: [phone] [facility] Pap Smear Ge- Camejo Referring In Womens Screening, 7-201 Zainab. Provider: Kamila ALBERT, Cervix 7 700 Zainab [address], Medical [place] T, [place], [place], Center [address] [id number], , [facility] [address] tel:[phone] [place] [address], [address] [place], [place], [id number] [place], , [place]. [id number]. tel:[phone] tel: [phone] Family History Family Member Diagnosis Age At [...] older Payers Payer name Insurance type Covered democrat ID Authorization(s) [employer] CI [id number] Aetna CI [id number] Aetna CI [id number] Social History Type Description Quantity Date Captured Alcohol Use Details No Caffeine Use Details Unknown Tobacco Use Status Unknown Smoking Status Never smoker Vital Signs Date / Height Weight BMI Pulse Blood Temperature Respiratory Body Head BMI Time: Rate Pressure Rate Surface Circumference percentile Area 276.80 43.3 129/82 -2017 lbs 5 mm[Hg] 2:02 kg/m PM eter (2) Chief Complaint And Reason For Visit Unknown Chief Complaint And Reason For Visit Reason For Referral Reason For Referral Unknown Plan Of Care Date Type Action Status Future Order: Radiology Order Ultrasound OB Follow-up ([id number]) Ordered Date Type Problem Goal Intervention Status [...]
[2016-12-18 15:09] VITALS: BMI 41.3
--- NOTE | 2016-12-18 15:21 | Pharmacy Consult-Antibiotics ---
Pharmacy Consult-Gentamicin - Consult Information Gentamicin protocol noted for Ms Armstrong, who is 36 yo and has a wound infection. She is on ceftriaxone, clindamycin and gentamicin. Will begin with gentamicin 120mg IV q8h and draw a trough if therapy continues past 48 hrs. Will check renal function to verify dose and continue to follow. Thank you.
[2016-12-18] MEDS ORDERED: CEFTRIAXONE 2 GM in NS 100 ML IV SCH (16:00)
[2016-12-18] MEDS: NS 1,000 ML IV SCH (16:05)
[2016-12-18] MEDS: CLINDAMYCIN PB 900 MG/50 ML BAG IV SCH (16:45)
[2016-12-18] MEDS: GENTAMICIN 120 MG in NS 100 ML IV SCH (17:59)
--- NOTE | 2016-12-18 18:58 | OB/GYN Progress Note ---
[employer] Progress Note - Subjective Today's Date: 12/18/16 Pt reports good pain control. - Objective Vital signs: Temperature 98.1 F 12/18/16 15:00 Pulse Rate 98 12/18/16 15:00 Respiratory Rate 16 12/18/16 15:00 Blood Pressure 123/68 12/18/16 15:00 Pulse Oximetry 96 12/18/16 15:00 Oxygen Delivery Method Room Air Urine Output: good General: alert and oriented Abdomen: soft Diffuse erythema surrounding incision, no current drainage. Extremities: non-tender Laboratory Result: 12/18/16 16:23 12/18/16 16:23 - Assessment and Plan (1) Wound infection after surgery Comment: Continue triple antibiotics, care as planned. Q&A
[2016-12-18] MEDS: IBUPROFEN 800 MG TABLET PO PRN (19:59)
[2016-12-19] MEDS: NS 1,000 ML IV SCH ×2 (01:08→09:11)
[2016-12-19] MEDS: CLINDAMYCIN PB 900 MG/50 ML BAG IV SCH ×2 (01:09→08:15)
[2016-12-19] MEDS: GENTAMICIN 120 MG in NS 100 ML IV SCH (01:53)
[2016-12-19] MEDS: IBUPROFEN 800 MG TABLET PO PRN (05:11)
[2016-12-19 07:44] VITALS: BP 120/78; PULSE 84; RESP 18; TEMP 98; O2SAT 98
--- NOTE | 2016-12-19 08:41 | OB/GYN Progress Note ---
DANCING MASTER Progress Note - Subjective Today's Date: 12/19/16 Pt doing well, Pain well controlled, Denies N/V, Fever/Chills. Has had minimal discharge from wound. Tolerated abx well. - Objective Vital signs: Temperature 98.0 F 12/19/16 07:41 Pulse Rate 84 12/19/16 07:41 Respiratory Rate 18 12/19/16 07:41 Blood Pressure 120/78 12/19/16 07:41 Pulse Oximetry 98 12/19/16 07:41 Oxygen Delivery Method Room Air General: alert and oriented Cardiovascular: regular rate,rhythm Respiratory: non-labored Abdomen: soft Incision: erythematous, edematous, skin Packing in place, Erythema has decreased from prior day evidenced by line on skin. Extremities: non-tender Laboratory Result: 12/18/16 16:23 12/19/16 04:55 Labs: UA Ur Collection Type Urine, clean catch 12/18/16 20:20 Urine Color Yellow (YELLOW) 12/18/16 20:20 Urine pH 7.0 (5.0-8.0) 12/18/16 20:20 Ur Specific [place] 1.020 (1.015-1.025) 12/18/16 20:20 Urine Protein 2+ (NEGATIVE) A 12/18/16 20:20 Urine Glucose (UA) Negative (NEGATIVE) 12/18/16 20:20 Urine Ketones Negative (NEGATIVE) 12/18/16 20:20 Urine Occult Blood 3+ (NEGATIVE) A 12/18/16 20:20 Urine Nitrate Negative (NEGATIVE) 12/18/16 20:20 Urine Bilirubin Negative (NEGATIVE) 12/18/16 20:20 Urine Urobilinogen 0.2 EU/DL (NORMAL) 12/18/16 20:20 Ur Leukocyte Esterase 2+ (NEGATIVE) A 12/18/16 20:20 - Assessment and Plan (1) Wound infection after surgery Assessment and Plan: Post OP wound infection. Responded well to IV abx will dc IV abx and start PO abx. Dismissal to home today will F/U in office for packing change 12/20/16 and 12/23/16. Will let wound heal by secondary intent. Qualifiers: Encounter type: subsequent encounter Qualified Code(s): T81.4XXD - Infection following a procedure, subsequent encounter Comment: Dismissal to home.
--- NOTE | 2016-12-19 08:43 | Discharge Summary ---
DC Information/Hospital Course Date of admission: 12/18/16 14:47 Anticipated date of discharge: 12/19/16 Attending Physician: Chito Rincon DO (1) Wound infection after surgery Qualifiers: Encounter type: subsequent encounter Qualified Code(s): T81.4XXD - Infection following a procedure, subsequent encounter Status: Acute Problem details: Dismissal to home. - Hospital Course Hospital Course: 12/19/16 08:42 Admitted for IV abx responded well, changed to PO ABX Laboratory: Labs from last 24 hours 12/19/16 12/18/16 12/18/16 04:55 20:20 20:20 WBC RBC Hgb Hct MCV MCH MCHC RDW Std Deviation Plt Count MPV Turbidity Sodium Potassium Chloride Carbon Dioxide Anion Gap BUN Creatinine 0.9 GFR Calculation 70 BUN/Creatinine Ratio Glucose Calculated Osmolality Calcium Total Bilirubin Icterus Index AST ALT Alkaline Phosphatase Total Protein Albumin Globulin Albumin/Globulin Ratio Specimen Hemolysis Ur Collection Type Urine, clean catch Urine Color Yellow Urine Clarity Cloudy Urine pH 7.0 Ur Specific [place] 1.020 Urine Protein 2+ A Urine Glucose (UA) Negative Urine Ketones Negative Urine Occult Blood 3+ A Urine Nitrate Negative Urine Bilirubin Negative Urine Urobilinogen 0.2 Ur Leukocyte Esterase 2+ A Urine RBC 20-30 H Urine WBC Tntc Ur Squamous Epith Cells 0-5 Urine Bacteria 1+ H Ur Culture Indicated? Cult not indicated MRSA Specimen Source Nasal MRSA (PCR) Negative 12/18/16 12/18/16 12/18/16 16:23 16:23 15:36 WBC 11.8 H RBC 3.38 L Hgb 8.6 L Hct 27.6 L MCV 81.7 MCH 25.4 L MCHC 31.2 RDW Std Deviation 40.8 Plt Count 323 D MPV 8.8 L Turbidity < 20 Sodium 145 H Potassium 3.7 Chloride 114 H Carbon Dioxide 22 Anion Gap 9 BUN 12.0 Creatinine 0.8 GFR Calculation 80 BUN/Creatinine Ratio 15 Glucose 92 Calculated Osmolality 279 Calcium 8.4 Total Bilirubin 0.40 Icterus Index < 2 AST 15 ALT 36 Alkaline Phosphatase 119 Total Protein 5.8 L Albumin 2.8 L Globulin 3.0 Albumin/Globulin Ratio 0.9 L Specimen Hemolysis < 15 Ur Collection Type Urine Color Urine Clarity Urine pH Ur Specific [place] Urine Protein Urine Glucose (UA) Urine Ketones Urine Occult Blood Urine Nitrate Urine Bilirubin Urine Urobilinogen Ur Leukocyte Esterase Urine RBC Urine WBC Ur Squamous Epith Cells Urine Bacteria Ur Culture Indicated? MRSA Specimen Source Nasal MRSA (PCR) Negative [employer] Exam Vital signs: Temperature 98.0 F 12/19/16 07:41 Pulse Rate 84 12/19/16 07:41 Respiratory Rate 18 12/19/16 07:41 Blood Pressure 120/78 12/19/16 07:41 Pulse Oximetry 98 12/19/16 07:41 Oxygen Delivery Method Room Air Discharge Plan - Med Rec/Dispo Prescriptions: No Action Albuterol Inhaler [Ventolin Hfa 90 mcg/actuation] 2 puff ORAL INH PRN PRN PRN Reason: Allergic Reaction Phenylephrine HCl [Suphedrine PE] 10 mg PO PRN PRN PRN Reason: Allergy Symptoms Hydrocodone/APAP 5/325 [Carbon 5/325] 1 - 2 tab PO Q4H PRN #30 tablet PRN Reason: Pain Ibuprofen [Motrin] 800 mg PO Q8H #30 tablet Pnv No.95/Ferrous Fum/Folic AC [ Tablet] 1 each PO DAILY FLUoxetine [Prozac] 40 mg DAILY
--- NOTE | 2016-12-19 08:53 | Discharge Instructions ---
Discharge Plan - Med Rec/Dispo Referrals/Follow Up: Chito Rincon DO [Physician] - [facility] Instructions: Surgical Site Infections (GEN) Prescriptions: New CephALEXin [Keflex] 500 mg PO Q12HR 10 Days #20 capsule Ibuprofen [Motrin] 800 mg PO Q8H PRN tablet PRN Reason: Pain Continue Albuterol Inhaler [Ventolin Hfa 90 mcg/actuation] 2 puff ORAL INH PRN PRN PRN Reason: Allergic Reaction Phenylephrine HCl [Suphedrine PE] 10 mg PO PRN PRN PRN Reason: Allergy Symptoms Hydrocodone/APAP 5/325 [[place] 5/325] 1 - 2 tab PO Q4H PRN #30 tablet PRN Reason: Pain Pnv No.95/Ferrous Fum/Folic AC [ Tablet] 1 each PO DAILY FLUoxetine [Prozac] 40 mg DAILY Discontinued Ibuprofen [Motrin] 800 mg PO Q8H #30 tablet - Disposition 01 Discharged Home, Self-Care
== END 2016-12-19 10:05 | disposition home or self-care (01) ==
LOC: SRG
PROVIDERS: ADMIT Obstetrics & Gynecology; ATTEND Obstetrics & Gynecology